=== PATIENT | female | born 1990 | race Two or more races ===

== ENCOUNTER 2017-04-12 18:50 | Emergency (ER) | payer BC ==
[~2017-04-12 18:50] MED LIST: MACROBID100 M1 PO; NO MEDICATIONS; TYLENOL #3 PO
== END 2017-04-12 22:04 | disposition home or self-care (01) ==
LOC: CED 18:50
DX: G43.909 Migraine, unspecified, not intractable, without status migrainosus (principal)
CPT/HCPCS: 96361; 96374; 96375; 99284; J0780; J1200; J1885